=== PATIENT | male | born 1975 | race Caucasian/White ===

== ENCOUNTER 2017-01-17 08:06 | Emergency (ER) | payer OTHER ==
[~2017-01-17] VITALS: Ht 177.8 cm; Wt 90.0 kg
[2017-01-17 08:07] VITALS: BP 163/81; PULSE 71; RESP 20; TEMP 97.6; O2SAT 96
[2017-01-17] MEDS ORDERED: SODIUM CHLORIDE 0.9% FLUSH 10 ML FLUSH IV FLUSH PRN (08:45)
[2017-01-17 08:46] VITALS: BP 132/81; PULSE 81; RESP 18; TEMP 98; O2SAT 97
[2017-01-17 08:48] VITALS: O2SAT 98
[2017-01-17] MEDS ORDERED: ONDANSETRON HCL 4 MG/2 ML VIAL IV PUSH ONE (09:00)
[2017-01-17] MEDS ORDERED: SODIUM CHLOR 0.9% 1000 ML INJ 1,000 ML IV ONE (09:00)
[2017-01-17] MEDS ORDERED: KETOROLAC TROMETHAMINE 30 MG/ML (IVP) VIAL IV PUSH ONE (09:00)
--- NOTE | 2017-01-17 09:00 | PD ---
HPI Chief Complaint: Flank/Kidney Pain Time Seen by Provider: 08:57 Travel History International Travel<30 days: No Contact w/Intl Traveler<30days: No Traveled to known affect area: No History of Present Illness HPI 41-year-old male with history of kidney stones, status post cholecystectomy in the past, presents to the ER today with intermittent urinary urgency for the last few days, had right flank pains at 6 AM this morning, currently measuring at 812 out of 10 according to him. He denies any fevers, vomiting, diarrhea, or any other symptoms. He states he feels very nauseous currently. Modifying Factors: None Associated Signs & Symptoms: Right flank pain Risk Factors: Kidney stone history PFSH Past Medical History Medical other: Yes (KIDNEY STONES) Past Surgical History Cholecystectomy: Yes Social History Alcohol Use: No Tobacco Use: No Substance Use: No Allergies-Medications (Allergen,Severity, Reaction): Coded Allergies: penicillin G (Verified Allergy, Severe, rash, 01/17/17) Reported Meds & Prescriptions Reported Meds & Active Scripts Active No Active Prescriptions or Reported Medications Review of Systems Except as stated in HPI: all other systems reviewed are Neg Physical Exam Narrative GENERAL: Well-developed middle age white male patient currently in moderate distress. Awake and oriented 3. SKIN: Focused skin assessment warm/dry. HEAD: Atraumatic. Normocephalic. EYES: Pupils equal and round. No scleral icterus. No injection or drainage. ENT: No nasal bleeding or discharge. Mucous membranes pink and moist. NECK: Trachea midline. No JVD. CARDIOVASCULAR: Regular rate and rhythm. No murmur appreciated. RESPIRATORY: No accessory muscle use. Clear to auscultation. Breath sounds equal bilaterally. GASTROINTESTINAL: Abdomen soft, right sided abdominal tenderness without guarding or rebound, nondistended. Hepatic and splenic margins not palpable. Right CVA tenderness. MUSCULOSKELETAL: No obvious deformities. No clubbing. No cyanosis. No edema. NEUROLOGICAL: Awake and alert. No obvious cranial nerve deficits. Motor grossly within normal limits. Normal speech. PSYCHIATRIC: Appropriate mood and affect; insight and judgment normal. Data Data Last Documented VS Vital Signs Date Time Temp Pulse Resp B/P (MAP) Pulse Ox O2 Delivery O2 Flow Rate FiO2 01/17/17 13:44 98.0 84 16 105/58 (74) 97 Room Air Orders Orders Complete Blood Count With Diff (01/17/17 08:32) Comprehensive Metabolic Panel (01/17/17 08:32) Lipase (01/17/17 08:32) Urinalysis - C+S If Indicated (01/17/17 08:32) Iv Access Insert/Monitor (01/17/17 08:32) Ecg Monitoring (01/17/17 08:32) Oximetry (01/17/17 08:32) Sodium Chloride 0.9% Flush (Ns Flush) (01/17/17 08:45) Sodium Chlor 0.9% 1000 Ml Inj (Ns 1000 M (01/17/17 09:00) Ketorolac Inj (Toradol Inj) (01/17/17 09:00) Ondansetron Inj (Zofran Inj) (01/17/17 09:00) Ct Abd/Pel W/O Iv Contrast (01/17/17 08:57) Urine Culture (01/17/17 10:00) Potassium, Serum (K) (01/17/17 14:34) Electrocardiogram (01/17/17 ) Labs Laboratory Tests Test 01/17/17 08:50 01/17/17 10:00 01/17/17 12:48 01/17/17 14:40 White Blood Count 8.8 TH/MM3 Red Blood Count 4.92 MIL/MM3 Hemoglobin 14.9 GM/DL Hematocrit 41.8 % Mean Corpuscular Volume 85.1 FL Mean Corpuscular Hemoglobin 30.2 PG Mean Corpuscular Hemoglobin Concent 35.6 % Red Cell Distribution Width 13.8 % Platelet Count 376 TH/MM3 Mean Platelet Volume 8.8 FL Neutrophils (%) (Auto) 50.4 % Lymphocytes (%) (Auto) 40.7 % Monocytes (%) (Auto) 6.7 % Eosinophils (%) (Auto) 0.9 % Basophils (%) (Auto) 1.3 % Neutrophils # (Auto) 4.5 TH/MM3 Lymphocytes # (Auto) 3.6 TH/MM3 Monocytes # (Auto) 0.6 TH/MM3 Eosinophils # (Auto) 0.1 TH/MM3 Basophils # (Auto) 0.1 TH/MM3 CBC Comment DIFF FINAL Differential Comment Urine Color YELLOW Urine Turbidity HAZY Urine pH 5.5 Urine Specific [place] 1.030 Urine Protein 30 mg/dL Urine Glucose (UA) NEG mg/dL Urine Ketones NEG mg/dL Urine Occult Blood LARGE Urine Nitrite NEG Urine Bilirubin NEG Urine Urobilinogen LESS THAN 2.0 MG/DL Urine Leukocyte Esterase NEG Urine RBC 104 /hpf Urine WBC 5 /hpf Urine Squamous Epithelial Cells 1 /hpf Urine Calcium Oxalate Crystals OCC /hpf Urine Bacteria MOD /hpf Urine Hyaline Casts 2 /lpf Urine Mucus MANY /lpf Microscopic Urinalysis Comment CULTURE INDICATED Blood Urea Nitrogen 11 MG/DL Creatinine 0.89 MG/DL Random Glucose 92 MG/DL Total Protein 7.0 GM/DL Albumin 3.3 GM/DL Calcium Level 8.5 MG/DL Alkaline Phosphatase 80 U/L Aspartate Amino Transf (AST/SGOT) 109 U/L Alanine Aminotransferase (ALT/SGPT) 75 U/L Total Bilirubin 0.1 MG/DL Sodium Level 138 MEQ/L Potassium Level 6.1 MEQ/L Chloride Level 108 MEQ/L Carbon Dioxide Level 23.6 MEQ/L Anion Gap 6 MEQ/L Estimat Glomerular Filtration Rate 95 ML/MIN Lipase 78 U/L MDM Medical Decision Making Medical Screen Exam Complete: Yes Emergency Medical Condition: Yes Medical Record Reviewed: Yes Interpretation(s) EKG shows NSR, no ST elevation or depression, and no arrhythmias. No significant T-wave inversions. Laboratory Tests Test 01/17/17 08:50 01/17/17 10:00 01/17/17 12:48 01/17/17 14:40 Urine Turbidity HAZY (CLEAR) Urine Protein 30 mg/dL (NEG-TRACE) Urine Occult Blood LARGE (NEG) Urine RBC 104 /hpf (0-3) Urine Calcium Oxalate Crystals OCC /hpf (NONE) Urine Bacteria MOD /hpf (NONE) Urine Mucus MANY /lpf (OCC) Albumin 3.3 GM/DL (3.4-5.0) Aspartate Amino Transf (AST/SGOT) 109 U/L (15-37) Total Bilirubin 0.1 MG/DL (0.2-1.0) Potassium Level 6.1 MEQ/L (3.5-5.1) Chloride Level 108 MEQ/L (98-107) Differential Diagnosis Right sided abdominal pains and right flank pains: Renal colic versus pyelonephritis versus muscular skeletal versus diverticulitis Narrative Course Initially CAT scan was read with 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 Smith who took a look at the scan and states that this is a misprint, that there is a 1 mm stone in the right UVJ which is likely causing symptoms. Lab work shows blood in the urine as well indicative of this. His lab work otherwise showed a very hemolyzed potassium which was redrawn 3 times. Unfortunately, were not able to get a normal potassium and the family state that they do not want to get further lab work drawn at this point. I also feel that it is not necessary at this point since this is not patient's issue. An EKG done in the ER did not show any signs of significant interval prolongation or signs of obvious EKG effects of hyperkalemia. Patient has no underlying renal processes. My plan would be to release him at this point with symptomatic relief or pain and have her follow-up with primary care physician and urology. Return for any worsening in symptoms as necessary. The plan has been discussed with him and he states understanding. Patient was given IV fluids and pain medication in the ER and on reevaluation at 3 PM, is appearing much more comfortable. Diagnosis Primary Impression: Renal colic Med/Other Pt SpecificInfo: Prescription(s) given Scripts Naproxen (Naprosyn) 500 Mg Tab 500 MG PO BID, #60 TAB 0 Refills Prov: Reji Iniguez MD 01/17/17 Hydrocodone-Acetaminophen (Lortab) 5-325 Mg Tab 1 TAB PO Q6H Y for PAIN, #15 TAB 0 Refills Prov: Reji Iniguez MD 01/17/17 Disposition: 01 DISCHARGE HOME Condition: Stable Reji Iniguez MD Jan 17, 2017 09:00
[2017-01-17 09:29] LABS: AUTOMATED NEUTROPHIL # 4.5 TH/MM3 (1.8-7.7); BASOPHIL # 0.1 TH/MM3 (0-0.2); BASOPHIL % 1.3 % (0.0-2.0); EOSINOPHIL # 0.1 TH/MM3 (0-0.4); EOSINOPHIL % 0.9 % (0.0-4.0); HEMATOCRIT 41.8 % (39.0-51.0); HEMO FLAGS DIFF FINAL; LYMPH % 40.7 % (9.0-44.0); LYMPHOCYTE # 3.6 TH/MM3 (1.0-4.8); MEAN CELL VOLUME 85.1 FL (80.0-100.0); MEAN CORPUSCULAR HEMOGLOBIN 30.2 PG (27.0-34.0); MEAN CORPUSCULAR HGB CONC 35.6 % (32.0-36.0); MONO % 6.7 % (0.0-8.0); NEUT % 50.4 % (16.0-70.0); PLATELET COUNT 376 TH/MM3 (150-450); RED BLOOD COUNT 4.92 MIL/MM3 (4.50-5.90); RED CELL DISTRIBUTION WIDTH 13.8 % (11.6-17.2); WHITE BLOOD COUNT 8.8 TH/MM3 (4.0-11.0)
[2017-01-17 09:42] LABS: ALKALINE PHOSPHATASE 80 U/L (45-117)
--- NOTE | 2017-01-17 10:43 | RADRPT ---
EXAM DATE/TIME: 01/17/2017 09:43 [facility] COMPARISON: No previous studies available for comparison. INDICATIONS : Right flank pain. ORAL CONTRAST: No oral contrast ingested. RADIATION DOSE: 8.11 CTDIvol (mGy) MEDICAL HISTORY : Renal calculi. SURGICAL HISTORY : Cholecystectomy. ENCOUNTER: Initial ACUITY: 1 day PAIN SCALE: 6/10 LOCATION: Right flank TECHNIQUE: Volumetric scanning of the abdomen and pelvis was performed. Using automated exposure control and ad justment of the mA and/or kV according to patient size, radiation dose was kept as low as reasonably achievable to obtain optimal diagnostic quality images. DICOM format image data is available electro nically for review and comparison. FINDINGS: The lung spaces are clear. Moderate fatty replacement to liver. Surgical clips gallbladder fossa. The spleen, pancreas and adrenals unremarkable Right kidney: There are no calcifications the right kidney Left kidney: Line 3mm calcification left kidney. No calcifications along the expected course of the left ureter. Mesentery is unremarkable One mm calcification expected location of the UVJ on the right. There is no hydronephrosis or perine phric stranding Pelvic contents otherwise unremarkable. 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 No significant hydronephrosis 3 mm calcification left kidney. Tae Smith MD FACR on January 17, 2017 at 10:39 Board Certified Radiologist. This report was verified electronically.
[2017-01-17 11:02] LABS: BACTERIA, URINE MOD /hpf; BLOOD, URINE LARGE (NEG); CALCIUM OXALATE CRYSTALS,URINE OCC /hpf; COMMENT (UR) CULTURE INDICATED; CULTURE IF INDICATED CULTURE INDICATED; GLUCOSE,URINE NEG (NEG); HYALINE CAST, URINE 2 /lpf (RARE); KETONE, URINE NEG (NEG); MUCUS URINE MANY /lpf (OCC); NITRITE,URINE NEG (NEG); PH, URINE 5.5 (5.0-8.5); SQUAMOUS EPITHELIAL CELL URINE 1 /hpf (0-5); URINE COLOR YELLOW (YELLW/STRAW)
[2017-01-17 13:44] VITALS: BP 105/58; PULSE 84; RESP 16; TEMP 98; O2SAT 97
[2017-01-17 14:00] LABS: TOTAL BILIRUBIN ADULT 0.1 MG/DL (0.2-1.0)
[2017-01-17 14:08] LABS: BLOOD UREA NITROGEN 11 MG/DL (7-18); GLOMERULAR FILTRATION RATE 95 ML/MIN (>89)
[2017-01-17 14:15] LABS: CHLORIDE 108 MEQ/L (98-107)
[2017-01-17 14:26] LABS: ALT (GPT) 75 U/L (12-78); AST (GOT) 109 U/L (15-37); POTASSIUM 6.1 MEQ/L (3.5-5.1); SODIUM (NA) 138 MEQ/L (136-145)
[2017-01-17 14:27] LABS: ANION GAP 6 MEQ/L (5-15); BICARBONATE 23.6 MEQ/L (21.0-32.0)
[2017-01-17] MEDS ORDERED: HYDR-3533 PO ×2 (15:35→16:35)
[2017-01-17] MEDS ORDERED: NAPR500 PO ×2 (15:35→16:35)
--- NOTE | 2017-01-18 12:17 | EKG ---
Date Performed: 01/17/2017 Time Performed: 15:28:23 PTAGE: 41 years EKG: Sinus rhythm NORMAL ECG NO PREVIOUS TRACING DOCTOR: Katarina Martinez Interpretating Date/Time 01/18/2017 12:13:55
== END 2017-01-17 16:40 | disposition home or self-care (01) ==
LOC: NEPC 08:06
DX: N23 Unspecified renal colic (principal); Z79.899 Other long term (current) drug therapy; Z87.442 Personal history of urinary calculi
CPT/HCPCS: 74176; 80053; 81001; 83690; 85025; 87086; 93005; 96374; 96375; 99285; J1885; J2405; J7030